=== PATIENT | male | born 1945 | race Caucasian/White ===

== ENCOUNTER → 2017-10-05 | Outpatient (CLI) | payer OTHER, MEDICARE | LOC: SBRMNEURO 21:30 | PROVIDERS: ATTEND Psychiatry & Neurology Sleep Medicine | DX: G47.33 Obstructive sleep apnea (adult) (pediatric) (principal); G47.61 Periodic limb movement disorder ==

== ENCOUNTER 2018-09-07 10:23 | Emergency (ER) | payer OTHER, MEDICARE ==
[2018-09-07] MEDS ORDERED: IBUPROFEN 600 MG TAB PO ONE (10:43)
--- NOTE | 2018-09-07 11:52 | EDPHY ---
H & P Time Seen by Provider: 09/07/18 10:28 HPI/ROS: This patient presents with pain at the superior aspect of the patella/distal quadriceps after a slip and fall on black ice this morning shortly prior to arrival. He reports moderate pain initially to the area of injury and now reports mild pain he estimates is 3 to 4/10. He was unable to walk after the fall and explains that his and neighbor helped him up from his driveway where he fell assisted home into the car for transport here by private vehicle. He denies any other injuries from the fall and has not taken any analgesics or anti-inflammatory medications prior to arrival. ROS: Constitutional: He felt well prior to the mechanical fall Neuro: He did not strike his head. No focal numbness or tingling Musculoskeletal: No other joint complaints. 5 point review of symptoms is performed and otherwise negative with exception of pertinent positives and negatives listed in HPI and ROS Smoking Status: Former smoker Physical Exam: Physical Exam Vital signs are normal. General: No acute distress HEENT: Atraumatic. Eyes: Pupils equal and react to light. Extraocular motions are intact. Lungs: No respiratory distress. No chest wall tenderness Cardiac: Brisk capillary refill is intact throughout. Pulses are 2+ and symmetric in the affected extremity. Skin: No rash or pallor. Musculoskeletal: No midline neck or back pain Extremities: Atraumatic normal except for left lower extremity Left knee: No posterior tenderness, medial and lateral tenderness. He has obvious soft tissue deformity just superior to the patella with the notable step -off for the patellar tendon should be and a associated mild tenderness with limited capacity for extension due to the injury. Neuro: Alert and oriented x3 with no sensorimotor deficits. Initial differential diagnosis: Patellar tendon rupture, patellar fracture Constitutional: Initial Vital Signs Temperature (C) 36.6 C 09/07/18 10:29 Heart Rate 74 09/07/18 10:29 Respiratory Rate 16 09/07/18 10:29 Blood Pressure 157/80 H 09/07/18 10:29 O2 Sat (%) 95 09/07/18 10:29 O2 Delivery Mode Room Air Allergies/Adverse Reactions: No Known Allergies Allergy (Verified 09/07/18 10:32) Home Medications: Medication Instructions Recorded Colostrum 02/05/16 Essential Fatty Acids 02/05/16 Milk Thistle 02/05/16 [place] Extract 02/05/16 Turmeric 02/05/16 VITAMIN D 02/05/16 Losartan Potassium 09/07/18 traMADol [Ultram 50 mg (*)] 50 - 100 mg PO Q4 PRN #18 tab 09/07/18 MDM/Departure - MDM Diagnostics: Knee x-rays: Calcification in the region of the quadriceps tendon question avulsion fracture versus calcification by my interpretation Imaging Results: Imaging Impressions Knee X-Ray 09/07/18 10:44 Impression: 1. Effusion with small suprapatellar loose body versus dystrophic calcification within the quadriceps tendon. Query tear of the quadriceps tendon. 2. No acute fracture. Imaging: I viewed and interpreted images myself Medications Given: Discontinued Medications Ibuprofen (Motrin) 600 mg PO EDNOW ONE Stop: 09/07/18 10:44 Last Admin: 09/07/18 10:46 Dose: 600 mg ED Course/Re-evaluation: Splinting: Knee immobilizer placed by our tech with my supervision. Patient neurovascular intact post splint application Is also given crutch training I counseled this patient regarding quadriceps tendon rupture. Ibuprofen p.o. The requested Dr. Wright as their orthopedic physician. I spoke with Dr. Chandler on-call for Dr. Wright to arrange for close follow-up on Monday. - Depart Disposition: Home, Routine, Self-Care Clinical Impression: Quadriceps tendon rupture Qualifiers: Encounter type: initial encounter Laterality: left Qualified Code(s): S76.112A - Strain of left quadriceps muscle, fascia and tendon, initial encounter Condition: Good Instructions: Crutch Instructions (ED), Knee Immobilizer (ED) Additional Instructions: Diagnosis: Quadriceps tendon rupture Plan: Knee immobilizer whenever your up and about Crutches for ambulation. Ibuprofen Tylenol for pain as needed Tramadol in addition if needed for pain that prevents sleep. No driving, alcohol work on tramadol. Call Dr. Wright is office today to arrange for a follow-up appointment for Monday. If Dr. Wright is unavailable during that time frame, Dr. Freddie Byrnes is also happy to see you. Prescriptions: traMADol [Ultram 50 mg (*)] 50 - 100 mg PO Q4 PRN #18 tab PRN Reason: breakthrough pain Referrals: NONE *PRIMARY CARE P,. [Primary Care Provider] - As per Instructions Russel Wright MD [Medical Doctor] - As per Instructions
[2018-09-07 12:20] VITALS: BP 136/81
== END 2018-09-07 12:03 | disposition home or self-care (01) ==
LOC: CED 10:23
DX: S76.112A Strain of left quadriceps muscle, fascia and tendon, initial encounter (principal); W00.0XXA Fall on same level due to ice and snow, initial encounter; Y92.9 Unspecified place or not applicable; Y99.9 Unspecified external cause status; Y93.9 Activity, unspecified
CPT/HCPCS: 73562; 99283; L1830